=== PATIENT | female | born 1990 | race Caucasian/White ===

== ENCOUNTER 2021-08-17 17:01 | Emergency (ER) | payer BC ==
[2021-08-17 19:23] LABS: BLOOD UREA NITROGEN,BUN 9 mg/dL (7.0-18.0); CARBON DIOXIDE,CO2 24.8 mmol/L (21.0-32.0); CHLORIDE,CL 105 mmol/L (98-107); GLUCOSE RANDOM 84 mg/dL (74-106); POTASSIUM,K 3.7 mmol/L (3.5-5.1); SODIUM,NA 140 mmol/L (136-145)
== END 2021-08-17 19:54 | disposition home or self-care (01) ==
LOC: MW.ED 17:01
DX: O03.9 Complete or unspecified spontaneous abortion without complication (principal); N93.9 Abnormal uterine and vaginal bleeding, unspecified; Z88.5 Allergy status to narcotic agent; Z86.16 Personal history of COVID-19
CPT/HCPCS: 36415; 80053; 84702; 85025; 99283; 99284

== ENCOUNTER 2021-10-14 15:55 | Emergency (ER) | payer BC ==
[2021-10-14 19:18] LABS: BLOOD UREA NITROGEN,BUN 20 mg/dL (7.0-18.0); CARBON DIOXIDE,CO2 21.2 mmol/L (21.0-32.0); CHLORIDE,CL 107 mmol/L (98-107); GLUCOSE RANDOM 84 mg/dL (74-106); POTASSIUM,K 3.9 mmol/L (3.5-5.1); SODIUM,NA 139 mmol/L (136-145)
== END 2021-10-14 20:58 | disposition home or self-care (01) ==
LOC: MW.ED 15:55
DX: O20.0 Threatened abortion (principal); R93.41 Abnormal radiologic findings on diagnostic imaging of renal pelvis, ureter, or bladder; Z88.6 Allergy status to analgesic agent; Z79.899 Other long term (current) drug therapy; Z86.16 Personal history of COVID-19
CPT/HCPCS: 36415; 76817; 76817-26; 80053; 81003; 81025; 84702; 85025; 86900; 86901; 99284; 99284-25

== ENCOUNTER 2021-11-03 22:40 | Emergency (ER) | payer BC ==
[2021-11-04] MEDS ORDERED: Morphine 4 MG/ML VIAL IVPUSH ONE (00:45)
[2021-11-04] MEDS ORDERED: Acetaminophen/HYDROcodone 325-10 MG Tab PO ONE (00:46)
[2021-11-04] MEDS ORDERED: Ondansetron 4 MG/2 ML SDV IVPUSH STA (00:56)
[2021-11-04] MEDS ORDERED: HYDROmorphone 1 MG/ML Syringe IVPUSH STA (00:56)
[2021-11-04] MEDS ORDERED: HYDROmorphone 2 MG/ML Syringe IVPUSH ONE (02:38)
== END 2021-11-04 02:56 | disposition home or self-care (01) ==
LOC: MW.ED 22:40
DX: O20.9 Hemorrhage in early pregnancy, unspecified (principal); O34.80 Maternal care for other abnormalities of pelvic organs, unspecified trimester; N83.202 Unspecified ovarian cyst, left side; Z88.5 Allergy status to narcotic agent; Z86.16 Personal history of COVID-19; Z3A.00 Weeks of gestation of pregnancy not specified
CPT/HCPCS: 36415; 76815; 76815-26; 84702; 96374; 96375; 96376; 99284; 99284-25; J1170; J2405